=== PATIENT | male | born 1965 | race Caucasian/White ===

== ENCOUNTER 2024-07-13 22:27 | Emergency (ER) | payer MEDICARE, OTHER ==
[~2024-07-13] VITALS: Ht 172.7 cm; Wt 63.5 kg
[2024-07-13 23:37] LABS: SITE, VBG VBG - N/A; VBG BASE EXCESS 1.2 mmol/L (-2.0-3.0); VBG HCO3 26.8 mmol/L (22.0-29.0); VBG O2Hb 32.1 % (0-79); VBG OXYGEN SATURATION 32.8 % (60.0-85.0); VBG PCO2 47.7 mmHg (38.0-54.0); VBG PH 7.367 (7.320-7.430); VBG PO2 21.3 mmHg (23.0-48.0)
[2024-07-13] MEDS: IV NS 0.9% 1,000 ML BAG IV ONE (23:37)
[2024-07-13 23:43] LABS: BASOPHILS % (AUTO) 0.3 % (0.0-2.0); EOSINOPHILS # (AUTO) 0.5 K/uL (0.0-0.7); EOSINOPHILS % (AUTO) 5.8 % (0.0-6.0); HEMATOCRIT 27 % (39-51); HEMOGLOBIN 8.5 g/dL (13.5-17.5); LYMPHOCYTES # (AUTO) 1.3 K/uL (0.8-4.8); LYMPHOCYTES % (AUTO) 14.5 % (20.0-44.0); MEAN CORPUSCULAR HEMOGLOBIN 30 PG (26.0-33.0); MEAN CORPUSCULAR HGB CONC 32 g/dl (31.0-36.0); MEAN CORPUSCULAR VOLUME 95 fL (80-96); MONOCYTES # (AUTO) 0.8 K/uL (0.1-1.30); MONOCYTES % (AUTO) 9.1 % (2.0-12.0); NEUTROPHILS # (AUTO) 6.4 K/uL (1.8-8.9); NEUTROPHILS % (AUTO) 70.3 % (43.0-81.0); PLATELET COUNT (AUTO) 216 K/uL (150-450); RED BLOOD CELL COUNT(AUTO) 2.81 MIL/uL (4.5-6.0); RED CELL DISTRIBUTION WIDTH 17.3 % (11.5-15.0); WHITE BLOOD COUNT (AUTO) 9.1 K/uL (4.3-11.0)
[2024-07-14] LABS: CALCIUM, SERUM 8.6 mg/dL (8.5-10.1); CARBON DIOXIDE 34 mmol/L (21-32); CHLORIDE 97 mmol/L (98-107); CREATININE 3.4 mg/dL (0.6-1.3); GLUCOSE 375 mg/dL (74-106); POTASSIUM 4.5 mmol/L (3.5-5.1); SODIUM SERUM 136 mmol/L (136-145); UREA NITROGEN, BLOOD 40 mg/dL (7-18)
[2024-07-14 00:05] LABS: ALANINE AMINOTRANSFERASE 11 U/L (12-78); ALBUMIN 2.9 g/dL (3.4-5.0); ALKALINE PHOSPHATASE 264 U/L (46-116); ASPARTATE AMINOTRANSFERASE 12 U/L (15-37); BILIRUBIN,DIRECT 0.1 mg/dL (0.0-0.2); BILIRUBIN,TOTAL 0.3 mg/dL (0.2-1.0); LIPASE 16 U/L (16-77)
[2024-07-14 01:40] VITALS: BP 143/89; TEMP 98.3; O2SAT 100
== END 2024-07-14 01:40 | disposition home or self-care (01) ==
LOC: ER 22:40
DX: S00.83XA Contusion of other part of head, initial encounter (principal); M54.59 Other low back pain; R07.9 Chest pain, unspecified; R10.2 Pelvic and perineal pain; M54.2 Cervicalgia; I13.2 Hypertensive heart and chronic kidney disease with heart failure and with stage 5 chronic kidney disease, or end stage renal disease; E11.22 Type 2 diabetes mellitus with diabetic chronic kidney disease; N18.6 End stage renal disease; I50.9 Heart failure, unspecified; F20.9 Schizophrenia, unspecified; F32.A Depression, unspecified; Z87.19 Personal history of other diseases of the digestive system; Z88.2 Allergy status to sulfonamides; W01.0XXA Fall on same level from slipping, tripping and stumbling without subsequent striking against object, initial encounter; Y93.89 Activity, other specified; Y92.89 Other specified places as the place of occurrence of the external cause; Y99.8 Other external cause status
CPT/HCPCS: 99285; 72125; 96360; 71045; 93005; 82803; 72170; 70450; 85025; 80048; 82010; 83690; 80076; 36415; 84484; 82962; J7030

== ENCOUNTER 2024-11-02 15:05 | Inpatient (IN) | payer MEDICARE, OTHER ==
[~2024-11-02] VITALS: Ht 167.6 cm; Wt 63.5 kg
[~2024-11-02 15:05] MED LIST: diphenhydrAMINE HCL 25 MG CAPSULE PO PRN
[2024-11-02 16:19] LABS: BASOPHILS % (AUTO) 0.6 % (0.0-2.0); EOSINOPHILS # (AUTO) 0.2 K/uL (0.0-0.7); EOSINOPHILS % (AUTO) 1.9 % (0.0-6.0); HEMATOCRIT 37 % (39-51); HEMOGLOBIN 11.9 g/dL (13.5-17.5); LYMPHOCYTES # (AUTO) 2.3 K/uL (0.8-4.8); LYMPHOCYTES % (AUTO) 30.2 % (20.0-44.0); MEAN CORPUSCULAR HEMOGLOBIN 30 PG (26.0-33.0); MEAN CORPUSCULAR HGB CONC 33 g/dl (31.0-36.0); MEAN CORPUSCULAR VOLUME 93 fL (80-96); MONOCYTES # (AUTO) 0.9 K/uL (0.1-1.30); MONOCYTES % (AUTO) 11.6 % (2.0-12.0); NEUTROPHILS # (AUTO) 4.3 K/uL (1.8-8.9); NEUTROPHILS % (AUTO) 55.7 % (43.0-81.0); PLATELET COUNT (AUTO) 169 K/uL (150-450); RED BLOOD CELL COUNT(AUTO) 3.93 MIL/uL (4.5-6.0); RED CELL DISTRIBUTION WIDTH 17.1 % (11.5-15.0); WHITE BLOOD COUNT (AUTO) 7.7 K/uL (4.3-11.0)
[2024-11-02 16:27] LABS: CALCIUM, SERUM 8.8 mg/dL (8.5-10.1); CARBON DIOXIDE 26 mmol/L (21-32); CHLORIDE 98 mmol/L (98-107); CREATININE 6.3 mg/dL (0.6-1.3); GLUCOSE 116 mg/dL (74-106); POTASSIUM 4.5 mmol/L (3.5-5.1); SODIUM SERUM 138 mmol/L (136-145)
[2024-11-02 16:30] LABS: UREA NITROGEN, BLOOD 86 mg/dL (7-18)
[2024-11-02 16:40] LABS: ALANINE AMINOTRANSFERASE 17 U/L (12-78); ALBUMIN 2.9 g/dL (3.4-5.0); ALCOHOL, BLOOD < 3 mg/dL (0-10); ALKALINE PHOSPHATASE 169 U/L (46-116); ASPARTATE AMINOTRANSFERASE 20 U/L (15-37); BILIRUBIN,DIRECT 0.1 mg/dL (0.0-0.2); BILIRUBIN,TOTAL 0.2 mg/dL (0.2-1.0); TOTAL PROTEIN, SERUM 7.2 g/dL (6.4-8.2)
[2024-11-02 16:42] LABS: ACETAMINOPHEN <10 ug/ml (10-30); SALICYLATE 2.2 mg/dL (2.8-20.0)
[2024-11-02] MEDS ORDERED: L. A1TAB10 PO (17:08)
[2024-11-02] MEDS ORDERED: CHOL100043 PO (17:08)
[2024-11-02] MEDS ORDERED: HALO5TAB PO (17:08)
[2024-11-02] MEDS ORDERED: FOLI0.8T43 PO (17:08)
[2024-11-02] MEDS ORDERED: INSU100V3 SQ (17:08)
[2024-11-02] MEDS ORDERED: BISA10SU11 RC (17:08)
[2024-11-02] MEDS ORDERED: HYDR-4075 PO (17:08)
[2024-11-02] MEDS ORDERED: QUET50TA PO (17:08)
[2024-11-02] MEDS ORDERED: MELA5TAB PO (17:08)
[2024-11-02] MEDS ORDERED: RIFA550T PO (17:08)
[2024-11-02] MEDS ORDERED: LIDO30AD10 TP (17:08)
[2024-11-02] MEDS ORDERED: HYDR-4303 PO (17:08)
[2024-11-02] MEDS ORDERED: TRIH5TAB3 PO (17:08)
[2024-11-02] MEDS ORDERED: POLY17PO4 PO (17:08)
[2024-11-02] MEDS ORDERED: NA P133E RC (17:08)
[2024-11-02] MEDS ORDERED: NIFE-35 PO (17:08)
[2024-11-02] MEDS ORDERED: DIVA-78 PO (17:08)
[2024-11-02] MEDS ORDERED: DIPH25TA62 PO ×2 (17:08)
[2024-11-02] MEDS ORDERED: ACET325T53 PO (17:08)
[2024-11-02] MEDS ORDERED: LACT10SO29 PO (17:08)
[2024-11-02] MEDS ORDERED: INSU100V7 SQ (17:08)
[2024-11-02] MEDS ORDERED: SEVE800T28 PO (17:08)
[2024-11-02] MEDS ORDERED: AMIN30LI27 PO (17:08)
[2024-11-02] MEDS ORDERED: CYCL5TAB PO (17:08)
[2024-11-02] MEDS ORDERED: DEXTROSE 50%-WATER 50 ML DISP.SYRIN IV PRN (18:00)
[2024-11-02] MEDS ORDERED: MAGNESIUM HYDROXIDE 30 ML UDC PO PRN (18:00)
[2024-11-02] MEDS ORDERED: ZOLPIDEM TARTRATE 5 MG TABLET PO PRN (18:00)
[2024-11-02] MEDS ORDERED: ONDANSETRON HCL/PF 4 MG/2 ML VIAL IVP PRN (18:00)
[2024-11-02] MEDS ORDERED: ACETAMINOPHEN 325 MG TABLET PO PRN (18:00)
[2024-11-02] MEDS ORDERED: MAG HYDROX/AL HYDROX/SIMETH 30 ML UDC PO PRN (18:00)
[2024-11-02] MEDS ORDERED: POLYETHYLENE GLYCOL 3350 17 GM POWD.PACK PO PRN (18:30)
[2024-11-02] MEDS ORDERED: NA PHOS,M-B/NA PHOS,DI-BA 1 EA ENEMA RC PRN (18:30)
[2024-11-02] MEDS ORDERED: BISACODYL SUPP (10 MG) 10 MG/SUPP.RECT SUPP.RECT RC PRN (18:30)
[2024-11-02] MEDS ORDERED: CYCLOBENZAPRINE 10 MG TABLET PO PRN (20:30)
[2024-11-02] MEDS ORDERED: Medication Not On Formulary EA (Melatonin 5 MG) PO SCH (22:00)
[2024-11-02] MEDS: DIVALPROEX SODIUM 500 MG TABLET.DR PO SCH (22:10)
[2024-11-02] MEDS: INSULIN GLARGINE, 100 UNIT/ML CARTRIDGE SQ SCH (22:22)
[2024-11-02] MEDS: *INSULIN REGULAR(HUMULIN R)HUM 100 UNIT/ML VIAL SQ PRN (22:23)
[2024-11-02] MEDS: BLOOD SUGAR DIAGNOSTIC 1 EACH STRIP VI SCH (22:23)
[2024-11-02] MEDS: HYDROCODONE/APAP 5/325MG TABLET PO PRN (22:52)
[2024-11-03] VITALS: BP 143/83; TEMP 97.7; O2SAT 99
[2024-11-03] MEDS: LACTULOSE 10 G/15 ML UDC (PYXIS) PO SCH (00:02)
[2024-11-03 04:00] VITALS: BP 145/81; TEMP 97.7; O2SAT 98
[2024-11-03] MEDS: INSULIN REGULAR, HUMAN 100 UNIT/ML 3 ML VIAL SQ PRN (06:33)
[2024-11-03 06:34] LABS: BASOPHILS % (AUTO) 0.4 % (0.0-2.0); EOSINOPHILS # (AUTO) 0.2 K/uL (0.0-0.7); EOSINOPHILS % (AUTO) 3.4 % (0.0-6.0); HEMATOCRIT 33 % (39-51); HEMOGLOBIN 11.1 g/dL (13.5-17.5); LYMPHOCYTES # (AUTO) 2.2 K/uL (0.8-4.8); LYMPHOCYTES % (AUTO) 33.1 % (20.0-44.0); MEAN CORPUSCULAR HEMOGLOBIN 31 PG (26.0-33.0); MEAN CORPUSCULAR HGB CONC 34 g/dl (31.0-36.0); MEAN CORPUSCULAR VOLUME 91 fL (80-96); MONOCYTES # (AUTO) 0.9 K/uL (0.1-1.30); MONOCYTES % (AUTO) 12.8 % (2.0-12.0); NEUTROPHILS # (AUTO) 3.4 K/uL (1.8-8.9); NEUTROPHILS % (AUTO) 50.3 % (43.0-81.0); PLATELET COUNT (AUTO) 153 K/uL (150-450); RED BLOOD CELL COUNT(AUTO) 3.62 MIL/uL (4.5-6.0); WHITE BLOOD COUNT (AUTO) 6.8 K/uL (4.3-11.0)
[2024-11-03] MEDS ORDERED: INSULIN REGULAR, HUMAN 100 UNIT/ML 3 ML VIAL SQ SCH (07:30)
[2024-11-03 08:00] VITALS: BP 136/50; TEMP 98.4; O2SAT 98
[2024-11-03 09:38] LABS: CALCIUM, SERUM 8.3 mg/dL (8.5-10.1); CREATININE 6.7 mg/dL (0.6-1.3); MAGNESIUM 2.8 mg/dL (1.8-2.4); POTASSIUM 4.6 mmol/L (3.5-5.1)
[2024-11-03 09:41] LABS: PHOSPHORUS 9.1 mg/dL (2.5-4.9)
[2024-11-03] MEDS: ACIDOPHILUS/BULGARICUS 1 EACH TAB.CHEW PO SCH (10:11)
[2024-11-03] MEDS: PROSOURCE / PROSTAT (PYXIS) 30 ML UDC PO SCH (10:11)
[2024-11-03] MEDS: VIT B CMPLX 3/FA/VIT C/BIOTIN 1 TAB TABLET PO SCH (10:12)
[2024-11-03] MEDS: NICOTINE PATCH (21MG) 21 MG PATCH.TD24 TD SCH (10:12)
[2024-11-03] MEDS: LIDOCAINE 5% (PATCH) 1 EA PATCH TP SCH (10:12)
[2024-11-03] MEDS: CHOLECALCIFEROL 1,000 UNIT TABLET (VIT D3) PO SCH (10:12)
[2024-11-03] MEDS: HALOPERIDOL 5 MG TABLET PO SCH (10:12)
[2024-11-03] MEDS: RIFAXIMIN 550 MG TABLET PO SCH (10:13)
[2024-11-03] MEDS: hydrALAZINE HCL 10 MG TABLET PO SCH (10:28)
[2024-11-03] MEDS: SEVELAMER CARBONATE 800 MG TABLET PO SCH (10:29)
[2024-11-03] MEDS: PANTOPRAZOLE 40 MG TABLET.DR PO SCH (10:29)
[2024-11-03] MEDS: NIFEdipine XL (30MG) 30 MG TAB PO SCH (10:29)
[2024-11-03] MEDS: TRIHEXYPHENIDYL HCL 5 MG TABLET PO SCH (11:20)
[2024-11-03 15:21] LABS: THYROID STIMULATING HORMONE 3.95 uIU/mL (0.358-3.74)
[2024-11-03 16:00] VITALS: BP 130/60; TEMP 98; O2SAT 99
[2024-11-03] MEDS: QUETIAPINE FUMARATE 100 MG TABLET PO SCH (20:01)
[2024-11-03] MEDS: diphenhydrAMINE HCL 25 MG CAPSULE PO SCH (20:03)
[2024-11-03 22:00] VITALS: BP 136/70; TEMP 98.2; O2SAT 98
[2024-11-04 06:47] LABS: CALCIUM, SERUM 8.2 mg/dL (8.5-10.1); CREATININE 7.3 mg/dL (0.6-1.3); MAGNESIUM 2.8 mg/dL (1.8-2.4); POTASSIUM 4.5 mmol/L (3.5-5.1)
[2024-11-04 06:56] LABS: PHOSPHORUS 8.6 mg/dL (2.5-4.9)
[2024-11-04 07:15] LABS: BASOPHILS % (AUTO) 0.3 % (0.0-2.0); EOSINOPHILS # (AUTO) 0.2 K/uL (0.0-0.7); EOSINOPHILS % (AUTO) 3.3 % (0.0-6.0); HEMATOCRIT 33 % (39-51); HEMOGLOBIN 11.1 g/dL (13.5-17.5); LYMPHOCYTES # (AUTO) 1.9 K/uL (0.8-4.8); LYMPHOCYTES % (AUTO) 30.4 % (20.0-44.0); MEAN CORPUSCULAR HEMOGLOBIN 31 PG (26.0-33.0); MEAN CORPUSCULAR HGB CONC 34 g/dl (31.0-36.0); MEAN CORPUSCULAR VOLUME 92 fL (80-96); MONOCYTES # (AUTO) 0.8 K/uL (0.1-1.30); MONOCYTES % (AUTO) 12.4 % (2.0-12.0); NEUTROPHILS # (AUTO) 3.3 K/uL (1.8-8.9); NEUTROPHILS % (AUTO) 53.6 % (43.0-81.0); PLATELET COUNT (AUTO) 136 K/uL (150-450); RED BLOOD CELL COUNT(AUTO) 3.61 MIL/uL (4.5-6.0); RED CELL DISTRIBUTION WIDTH 17.4 % (11.5-15.0); WHITE BLOOD COUNT (AUTO) 6.1 K/uL (4.3-11.0)
[2024-11-04] MEDS ORDERED: diphenhydrAMINE HCL 50 MG/ML VIAL IM PRN (08:00)
[2024-11-04] MEDS ORDERED: HALOPERIDOL LACTATE INJ 5 MG/ML VIAL IM PRN (08:00)
[2024-11-05 08:29] LABS: BASOPHILS % (AUTO) 0.3 % (0.0-2.0); EOSINOPHILS # (AUTO) 0.2 K/uL (0.0-0.7); EOSINOPHILS % (AUTO) 2.6 % (0.0-6.0); HEMATOCRIT 38 % (39-51); HEMOGLOBIN 12.8 g/dL (13.5-17.5); LYMPHOCYTES # (AUTO) 1.5 K/uL (0.8-4.8); LYMPHOCYTES % (AUTO) 23.1 % (20.0-44.0); MEAN CORPUSCULAR HEMOGLOBIN 30 PG (26.0-33.0); MEAN CORPUSCULAR HGB CONC 33 g/dl (31.0-36.0); MEAN CORPUSCULAR VOLUME 90 fL (80-96); MONOCYTES # (AUTO) 0.8 K/uL (0.1-1.30); MONOCYTES % (AUTO) 12.5 % (2.0-12.0); NEUTROPHILS # (AUTO) 4.1 K/uL (1.8-8.9); NEUTROPHILS % (AUTO) 61.5 % (43.0-81.0); PLATELET COUNT (AUTO) 127 K/uL (150-450); RED BLOOD CELL COUNT(AUTO) 4.24 MIL/uL (4.5-6.0); RED CELL DISTRIBUTION WIDTH 17.3 % (11.5-15.0); WHITE BLOOD COUNT (AUTO) 6.6 K/uL (4.3-11.0)
[2024-11-05] MEDS: LEVOTHYROXINE SODIUM 50 MCG TABLET PO SCH (08:38)
[2024-11-05 08:56] LABS: CALCIUM, SERUM 8.8 mg/dL (8.5-10.1); CREATININE 5.2 mg/dL (0.6-1.3); MAGNESIUM 2.7 mg/dL (1.8-2.4); PHOSPHORUS 5.4 mg/dL (2.5-4.9); POTASSIUM 4.3 mmol/L (3.5-5.1)
[2024-11-05] MEDS: hydrALAZINE HCL IV 20 MG VIAL IV PRN (09:14)
[2024-11-05] MEDS: HEPARIN SODIUM, PORCINE 5000 UNITS/1 ML VIAL SQ SCH (20:58)
[2024-11-05 21:00] VITALS: BP 130/78; TEMP 98; O2SAT 98
[2024-11-06 06:38] LABS: BASOPHILS % (AUTO) 0.2 % (0.0-2.0); EOSINOPHILS % (AUTO) 0.4 % (0.0-6.0); HEMATOCRIT 42 % (39-51); HEMOGLOBIN 13.7 g/dL (13.5-17.5); LYMPHOCYTES % (AUTO) 22.2 % (20.0-44.0); MEAN CORPUSCULAR HEMOGLOBIN 30 PG (26.0-33.0); MEAN CORPUSCULAR HGB CONC 33 g/dl (31.0-36.0); MEAN CORPUSCULAR VOLUME 92 fL (80-96); MONOCYTES # (AUTO) 1.2 K/uL (0.1-1.30); MONOCYTES % (AUTO) 13.4 % (2.0-12.0); NEUTROPHILS # (AUTO) 5.7 K/uL (1.8-8.9); NEUTROPHILS % (AUTO) 63.8 % (43.0-81.0); PLATELET COUNT (AUTO) 130 K/uL (150-450); RED BLOOD CELL COUNT(AUTO) 4.54 MIL/uL (4.5-6.0); RED CELL DISTRIBUTION WIDTH 17.6 % (11.5-15.0); WHITE BLOOD COUNT (AUTO) 8.9 K/uL (4.3-11.0)
[2024-11-06 06:45] LABS: CALCIUM, SERUM 9.1 mg/dL (8.5-10.1); POTASSIUM 4.8 mmol/L (3.5-5.1)
[2024-11-06 07:00] VITALS: BP 119/73; TEMP 97.7; O2SAT 99
[2024-11-06 16:00] VITALS: BP 148/86; O2SAT 99
[2024-11-06 20:00] VITALS: BP 158/78; TEMP 98.1; O2SAT 98
[2024-11-07 08:00] VITALS: BP 155/78; TEMP 98.6; O2SAT 97
[2024-11-07 08:24] LABS: BASOPHILS % (AUTO) 0.2 % (0.0-2.0); EOSINOPHILS # (AUTO) 0.2 K/uL (0.0-0.7); EOSINOPHILS % (AUTO) 2.4 % (0.0-6.0); HEMATOCRIT 35 % (39-51); HEMOGLOBIN 11.8 g/dL (13.5-17.5); LYMPHOCYTES # (AUTO) 1.4 K/uL (0.8-4.8); LYMPHOCYTES % (AUTO) 18.6 % (20.0-44.0); MEAN CORPUSCULAR HEMOGLOBIN 31 PG (26.0-33.0); MEAN CORPUSCULAR HGB CONC 34 g/dl (31.0-36.0); MEAN CORPUSCULAR VOLUME 91 fL (80-96); MONOCYTES % (AUTO) 13.5 % (2.0-12.0); NEUTROPHILS # (AUTO) 4.9 K/uL (1.8-8.9); NEUTROPHILS % (AUTO) 65.3 % (43.0-81.0); PLATELET COUNT (AUTO) 91 K/uL (150-450); RED CELL DISTRIBUTION WIDTH 17.4 % (11.5-15.0); WHITE BLOOD COUNT (AUTO) 7.5 K/uL (4.3-11.0)
[2024-11-07 08:42] LABS: ALBUMIN 2.6 g/dL (3.4-5.0); BILIRUBIN,TOTAL 0.4 mg/dL (0.2-1.0); CALCIUM, SERUM 8.4 mg/dL (8.5-10.1); MAGNESIUM 3.1 mg/dL (1.8-2.4); PHOSPHORUS 7.5 mg/dL (2.5-4.9); POTASSIUM 4.9 mmol/L (3.5-5.1); TOTAL PROTEIN, SERUM 6.9 g/dL (6.4-8.2)
[2024-11-07 09:24] LABS: EOSINOPHILS % (MANUAL) 2 % (0-4); LYMPHOCYTES % (MANUAL) 16 % (16-48); MONOCYTES % (MANUAL) 10 % (0-11.0); NEUTROPHILS % (MANUAL) 72 (42-76); PLATELET ESTIMATE DECREASED
[2024-11-07 09:37] LABS: CREATININE 8.3 mg/dL (0.6-1.3)
[2024-11-07 17:00] VITALS: BP 132/76; TEMP 98.7; O2SAT 100
[2024-11-07 20:53] VITALS: BP 122/68; TEMP 98.5; O2SAT 96
[2024-11-07] MEDS: ACETAMINOPHEN 325 MG TABLET PO PRN (23:06)
[2024-11-08 00:05] VITALS: TEMP 98.5
[2024-11-08 07:34] LABS: CALCIUM, SERUM 8.7 mg/dL (8.5-10.1); CREATININE 6.7 mg/dL (0.6-1.3); MAGNESIUM 2.9 mg/dL (1.8-2.4); PHOSPHORUS 6.8 mg/dL (2.5-4.9); POTASSIUM 4.6 mmol/L (3.5-5.1)
[2024-11-08 07:41] LABS: BASOPHILS % (AUTO) 0.4 % (0.0-2.0); EOSINOPHILS # (AUTO) 0.2 K/uL (0.0-0.7); EOSINOPHILS % (AUTO) 3.2 % (0.0-6.0); HEMATOCRIT 39 % (39-51); HEMOGLOBIN 12.4 g/dL (13.5-17.5); LYMPHOCYTES # (AUTO) 1.9 K/uL (0.8-4.8); LYMPHOCYTES % (AUTO) 27.9 % (20.0-44.0); MEAN CORPUSCULAR HEMOGLOBIN 30 PG (26.0-33.0); MEAN CORPUSCULAR HGB CONC 32 g/dl (31.0-36.0); MEAN CORPUSCULAR VOLUME 93 fL (80-96); MONOCYTES % (AUTO) 14.9 % (2.0-12.0); NEUTROPHILS # (AUTO) 3.6 K/uL (1.8-8.9); NEUTROPHILS % (AUTO) 53.6 % (43.0-81.0); PLATELET COUNT (AUTO) 86 K/uL (150-450); RED BLOOD CELL COUNT(AUTO) 4.15 MIL/uL (4.5-6.0); WHITE BLOOD COUNT (AUTO) 6.7 K/uL (4.3-11.0)
[2024-11-08 10:33] LABS: EOSINOPHILS % (MANUAL) 4 % (0-4); LYMPHOCYTES % (MANUAL) 32 % (16-48); MONOCYTES % (MANUAL) 7 % (0-11.0); NEUTROPHILS % (MANUAL) 57 (42-76); PLATELET ESTIMATE DECREASED
[2024-11-08] MEDS: Z GUARD REMEDY 4 OZ OINT TP PRN (11:58)
[2024-11-08 16:57] VITALS: BP 148/77
== END 2024-11-08 18:15 | DRG 683 ==
LOC: ER 15:10 → MED 19:49 → TELE 23:40 → MED 11-03 13:51
PROVIDERS: ADMIT Student in an Organized Health Care Education/Training Program; ATTEND Nurse Practitioner Family
PROC: 5A1D70Z Performance of Urinary Filtration, Intermittent, Less than 6 Hours Per Day (ICD-10-PCS; principal; 2024-11-04)
DX: N17.9 Acute kidney failure, unspecified (principal); E44.0 Moderate protein-calorie malnutrition; I13.2 Hypertensive heart and chronic kidney disease with heart failure and with stage 5 chronic kidney disease, or end stage renal disease; N18.6 End stage renal disease; E83.39 Other disorders of phosphorus metabolism; F29 Unspecified psychosis not due to a substance or known physiological condition; E11.22 Type 2 diabetes mellitus with diabetic chronic kidney disease; I50.9 Heart failure, unspecified; E11.649 Type 2 diabetes mellitus with hypoglycemia without coma; Z20.822 Contact with and (suspected) exposure to COVID-19; D64.9 Anemia, unspecified; N40.0 Benign prostatic hyperplasia without lower urinary tract symptoms; E03.9 Hypothyroidism, unspecified; F20.9 Schizophrenia, unspecified; F32.A Depression, unspecified; Z88.2 Allergy status to sulfonamides; Z79.4 Long term (current) use of insulin; Z79.899 Other long term (current) drug therapy; Z99.2 Dependence on renal dialysis; Z72.0 Tobacco use; F91.9 Conduct disorder, unspecified
CPT/HCPCS: 36415; 80048-TC; 80053-TC; 80076-TC; 82962-TC; 83735-TC; 84100-TC; 84439-TC; 84443-TC; 85025-TC; 87081-TC; 87340; 90935-TC; G0378; G0480; J0360; J1644; J1815; J7030; Q0163